=== PATIENT | male | born 1955 | race Caucasian/White ===

== ENCOUNTER 2018-06-01 11:56 | Emergency (ER) | payer OTHER ==
[~2018-06-01] VITALS: Ht 162.6 cm; Wt 49.4 kg
[~2018-06-01 11:56] MED LIST: ASPI325 PO; CLOP75 PO; FAMO40 PO; Flonase 0.05% N16 GM; GABA300 PO; GABA800 PO; GLIP5 PO; HYDACE5 PO; HYDACE5325 PO; INS70/30PN; INSR10I SC; INSU7030P SUBQ; INSULANI SC; INSULANPEN SQ; LANS15EC PO; LEVO750 PO; LISI20 PO; METF500 PO; NICO21TP TD; Novolog100 UNIT/2 SC; OMEP20ER PO; PIOG15 PO; RINGWORM14.2 GM TP; RXHYD5325 PO; SUCR1 PO; TRAM50 PO; ZADITOR5 ML OD
[2018-06-01] MEDS ORDERED: Proventil5 MG/1 ML INH (13:11)
[2018-06-01] MEDS ORDERED: Flonase 0.05% N16 GM (13:11)
== END 2018-06-01 13:18 | disposition home or self-care (01) ==
LOC: ER 11:56
DX: J30.9 Allergic rhinitis, unspecified (principal); E11.9 Type 2 diabetes mellitus without complications; J44.9 Chronic obstructive pulmonary disease, unspecified; Z79.4 Long term (current) use of insulin; Z79.899 Other long term (current) drug therapy; Z87.891 Personal history of nicotine dependence
CPT/HCPCS: 99284-25